=== PATIENT | female | born 1975 | race American Indian/Alaskan Native ===

== ENCOUNTER 2017-10-28 12:15 | Emergency (ER) | payer BC ==
[2017-10-28 13:41] LABS: Basophils # (Auto) 0.1 K/mm3 (0.0-0.1); Basophils % (Auto) 1.3 % (0.0-1.8); Eosinophils # (Auto) 0.1 K/mm3 (0.0-0.4); Eosinophils % (Auto) 2.7 % (0.0-4.3); Hematocrit 36.2 % (30.3-42.9); Hemoglobin 11.7 gm/dl (10.1-14.3); Lymphocytes # (Auto) 1.2 K/mm3 (1.2-5.4); Lymphocytes % (Auto) 29.7 % (13.4-35.0); Mean Corpuscular HGB Conc 32 % (30-34); Mean Corpuscular Hemoglobin 28 pg (28-32); Mean Corpuscular Volume 86 fl (79-97); Monocytes # (Auto) 0.4 K/mm3 (0.0-0.8); Monocytes % (Auto) 8.5 % (0.0-7.3); Platelet Count 251 K/mm3 (140-440); Red Blood Count 4.23 M/mm3 (3.65-5.03); Red Cell Distribution Width 14.2 % (13.2-15.2)
--- NOTE | 2017-10-28 15:25 | Emergency Department Report ---
ED HPI - General Chief complaint: Vaginal Bleeding Stated complaint: PREG AND BLEEDING Time Seen by Provider: 10/28/17 14:49 Source: patient Mode of arrival: Ambulatory Limitations: No Limitations - History of Present Illness Initial comments: This is a 42-year-old female nontoxic, well nourished in appearance, no acute signs of distress presents to the ED with c/o of vaginal bleeding x2 days. Patient stated yesterday she noticed some spotting while in her [employer] and then has heavy vaginal bleeding that started this morning. Patient denies any abdominal or pelvic pain. Patient stated that she was told that her HCG has decreased from 1,000s to 900s. Patient stated that she has an appointment tomorrow with [employer]. Patient denies any vaginal discharge or foul odor. Patient denies any nausea, vomiting, chest pain, shortness of breathe, fever, chills, headache, stiff neck, numbness, tingling. Patient denies any urinary symptoms. Patient stated allergies to Bactrim. MD Complaint: vaginal bleeding -: days(s) (2) Radiation: none Improves with: none Worsens with: none Associated symptoms: vaginal bleeding. denies: nausea/vomiting, vaginal discharge, abdominal pain, dysuria, headache, vision changes, malaise, dysparuenia, rash, seizure, shortness of breath, syncope, weakness Vaginal bleeding: light :: Yes Number of weeks : 5 Pre-didi care: followed by OB - Related Data Allergies Allergy/AdvReac Type Severity Reaction Status Date / Time sulfamethoxazole Allergy Rash Verified 10/28/17 12:56 [From Bactrim] trimethoprim [From Bactrim] Allergy Rash Verified 10/28/17 12:56 ED Review of Systems ROS: Stated complaint: PREG AND BLEEDING Other details as noted in HPI Constitutional: denies: chills, fever Eyes: denies: eye pain, eye discharge, vision change ENT: denies: ear pain, throat pain Respiratory: denies: cough, shortness of breath, wheezing Cardiovascular: denies: chest pain, palpitations Endocrine: no symptoms reported Gastrointestinal: denies: abdominal pain, nausea, vomiting, diarrhea Genitourinary: abnormal menses. denies: urgency, dysuria, discharge Musculoskeletal: denies: back pain, joint swelling, arthralgia Skin: denies: rash, lesions Neurological: denies: headache, weakness, paresthesias Psychiatric: denies: anxiety, depression Hematological/Lymphatic: denies: easy bleeding, easy bruising ED Past Medical Hx - Past Medical History Previous Medical History?: No - Surgical History Past Surgical History?: Yes Additional Surgical History: c section - Social History Smoking Status: Never Smoker Substance Use Type: None ED Physical Exam - General Limitations: No Limitations General appearance: alert, in no apparent distress - Head Head exam: Present: atraumatic, normocephalic - Eye Eye exam: Present: normal appearance Pupils: Present: normal accommodation - ENT ENT exam: Present: normal exam, mucous membranes moist - Neck Neck exam: Present: normal inspection, full ROM - Respiratory Respiratory exam: Present: normal lung sounds bilaterally. Absent: respiratory distress - Cardiovascular Cardiovascular Exam: Present: regular rate, normal rhythm. Absent: systolic murmur, diastolic murmur, rubs, gallop - GI/Abdominal GI/Abdominal exam: Present: soft, normal bowel sounds. Absent: distended, tenderness, guarding, rebound, rigid, diminished bowel sounds - Rectal Rectal exam: Present: deferred - Extremities Exam Extremities exam: Present: normal inspection, full ROM, normal capillary refill - Back Exam Back exam: Present: normal inspection, full ROM - Neurological Exam Neurological exam: Present: alert, oriented X3 - Psychiatric Psychiatric exam: Present: normal affect, normal mood - Skin Skin exam: Present: warm, dry, intact, normal color. Absent: rash ED Course Vital Signs 10/28/17 12:43 Temperature 98.4 F Pulse Rate 78 Respiratory 18 Rate Blood Pressure 109/70 O2 Sat by Pulse 99 Oximetry - Reevaluation(s) Reevaluation #1: 10/28/17 15:32 Patient is speaking in full sentences with no signs of distress noted. ED Medical Decision Making - Lab Data Result diagrams: 10/28/17 13:17 - Medical Decision Making This is a 42-year-old female presents with threatened miscarriage. Patient is stable and was examined by me. Normal abdominal exam. US OB obtained and dictated by the radiologist. Ua obtained. Quantative serum test obtained and has decreased from previous office visit. Patient notified of the US report with no questions noted by the patient. RH factor positive. Labs within normal limits. Patient was referred to Follow-up with a [employer] in 3-5 days or if symptoms worsen and continue return to emergency room as soon as possible. At time of discharge, the patient does not seem toxic or ill in appearance. No acute signs of distress noted. Patient agrees to discharge treatment plan of care. No further questions noted by the patient. Critical care attestation.: If time is entered above; I have spent that time in minutes in the direct care of this critically ill patient, excluding procedure time. ED Disposition Clinical Impression: Threatened miscarriage Disposition: DC- TO HOME OR SELFCARE Is pt being admited?: No Does the pt Need Aspirin: No Condition: Stable Instructions: Threatened Miscarriage (ED) Additional Instructions: Follow-up with a [employer] doctor in 3-5 days or if symptoms worsen and continue return to emergency room as soon as possible. Your HCG level if 917 today. Referrals: PRIMARY CAREMD [Primary Care Provider] - 3-5 Days LAKSHMI COKER MD [Staff Physician] - 3-5 Days [facility] [Provider Group] - 3-5 Days Forms: Work/School Release Form(ED)
--- NOTE | 2017-10-28 17:03 | Ultrasound Report ---
FINAL REPORT PROCEDURE: Transabdominal obstetrical ultrasound. TECHNIQUE: Real-time transabdominal sonography of the uterus, placenta, amniotic fluid, adnexa, and fetus was performed with image documentation. Measurements were obtained to determine age/size. M-mode Doppler was used to document heartbeat. CPT 46064 HISTORY: Vaginal bleeding. COMPARISON: No prior studies are available for comparison. FINDINGS: The uterus measures 11.1 centimeters x 6.7 centimeters x 6.3 centimeters. There is a hypoechoic mass in the posterior portion of the uterus. This measures 2.1 centimeters in maximum dimension. It is consistent with a small leiomyoma. The endometrial echo complex appears normal. There is a small intrauterine gestational sac. This should be better seen with transvaginal imaging. Neither ovary is identified. IMPRESSION: Early intrauterine gestational sac.
--- NOTE | 2017-10-28 17:07 | Ultrasound Report ---
FINAL REPORT PROCEDURE: Transvaginal obstetrical ultrasound. TECHNIQUE: Real-time transvaginal sonography of the uterus, placenta, amniotic fluid, adnexa, and fetus was performed with image documentation. Measurements were obtained to determine age/size. M-mode Doppler was used to document heartbeat. CPT 99134 HISTORY: Vaginal bleeding. COMPARISON: No prior studies are available for comparison. FINDINGS: The uterus measures 11.1 centimeters x 6.7 centimeters x 6.4 centimeters. There is a small mass in the posterior uterus consistent with a fibroid. There is a small fluid collection in the fundal portion of the endometrial canal. This is consistent with a gestational sac. There is no yolk sac or pole identified however. Follow-up imaging is recommended. Correlation with a quantitative beta HCG value should also be helpful. Mean gestational sac diameter is 9.2 millimeters. This indicates a menstrual age of 5 weeks 5 days. The estimated date of confinement is 06/25/2018. Both ovaries appear normal in size. IMPRESSION: Small intrauterine gestational sac with follow-up imaging recommended. Small uterine leiomyoma.
[2017-10-28 18:21] VITALS: BP 130/82
== END 2017-10-28 18:21 | disposition home or self-care (01) ==
LOC: ED 12:15
DX: O20.0 Threatened abortion (principal); Z3A.01 Less than 8 weeks gestation of pregnancy; Z88.2 Allergy status to sulfonamides; Z88.8 Allergy status to other drugs, medicaments and biological substances
CPT/HCPCS: 36415; 76801; 76817; 84702; 85025; 86850; 86900; 86901

== ENCOUNTER 2018-11-11 11:23 | Outpatient (CLI) | payer BC, MEDICAID ==
[2018-11-11] MEDS ORDERED: ADENOSINE 6 MG/2 ML INJ IV ONE (11:33)
[2018-11-11] MEDS ORDERED: SODIUM CHLORIDE 0.9% 1000 ML 1,000 ML IV ONE (11:33)
[2018-11-11] MEDS ORDERED: SODIUM CHLORIDE 0.9% 1000 ML 1,000 ML ONE (11:35)
--- NOTE | 2018-11-11 11:39 | Emergency Department Report ---
HPI - General Time Seen by Provider: 11/11/18 11:30 - HPI HPI: Room 18 The patient is a 43-year-old female presenting with a chief complaint of SVT. The patient has a history of SVTs states after bending over and standing up she felt palpitations consistent with her SVTs. Patient denies shortness of breath or chest pain. Patient denies abdominal pain or vaginal bleeding. The patient states she is "8 months" Location: [See above] Duration: [See above] Quality: [See above] Severity: [See above] Timing: [See above] Context: [See above] Modifying factors: [See above] Associated signs and symptoms: [see above] ED Past Medical Hx - Past Medical History Additional medical history: SVT - Surgical History Additional Surgical History: c section - Family History Family history: no significant - Social History Smoking Status: Never Smoker Substance Use Type: None (denies illicit drug use) - Medications Home Medications: Home Medications Medication Instructions Recorded Confirmed Last Taken Type Ferrous Sulfate [Iron 325 MG] 325 mg PO QDAY 11/11/18 11/11/18 11/11/18 History Metoprolol [Lopressor] 25 mg PO BID 11/11/18 11/11/18 11/11/18 History Vit-Fe Fumar-FA [ 1 tab PO QDAY 11/11/18 11/11/18 11/11/18 History Vitamin] ED Review of Systems ROS: Stated complaint: SVT Other details as noted in HPI Constitutional: no symptoms reported Eyes: denies: eye pain ENT: denies: throat pain Respiratory: denies: shortness of breath Cardiovascular: palpitations. denies: chest pain Endocrine: no symptoms reported Gastrointestinal: denies: abdominal pain Genitourinary: denies: abnormal menses Musculoskeletal: denies: back pain Neurological: denies: headache Physical Exam - Physical Exam Vital Signs: Vital Signs 11/11/18 11/11/18 11/11/18 11:20 11:26 11:30 Pulse Rate 216 H 216 H 90 Respiratory 24 18 18 Rate Blood Pressure 92/68 O2 Sat by Pulse 96 100 Oximetry 11/11/18 11/11/18 11/11/18 11:35 11:40 11:46 Pulse Rate 92 H 94 H 98 H Respiratory 13 13 15 Rate Blood Pressure 91/61 103/71 108/66 O2 Sat by Pulse 100 100 99 Oximetry 10/04/19 10/04/19 10/04/19 11:50 11:55 12:00 Pulse Rate 90 96 H 97 H Respiratory 15 21 24 Rate Blood Pressure 82/49 106/58 106/58 O2 Sat by Pulse 100 100 100 Oximetry 11/11/18 12:05 Pulse Rate 98 H Respiratory 19 Rate Blood Pressure 103/60 O2 Sat by Pulse 100 Oximetry Physical Exam: GENERAL: The patient is well-developed well-nourished female on a stretcher appearing to be slightly anxious HEENT: Normocephalic. Atraumatic. Extraocular motions are intact. Patient has moist mucous membranes. NECK: Supple. Trachea midline CHEST/LUNGS: Clear to auscultation. There is no respiratory distress noted. HEART/CARDIOVASCULAR: Regular. There is tachycardia. There is no gallop rub or murmur. ABDOMEN: Abdomen is gravid SKIN: There is no rash. There is no edema. There is no diaphoresis. NEURO: The patient is awake, alert, and oriented. The patient is cooperative. The patient has normal speech MUSCULOSKELETAL: There is no evidence of acute injury. ED Course - Consultations Consultation #1: 11/11/18 12:[address] Jorgensen- will transfer patient to L&D for [facility] ED Medical Decision Making - Lab Data Result diagrams: 11/11/18 11:38 11/11/18 11:38 Laboratory Tests 11/11/18 11/11/18 11/11/18 11:38 11:38 11:38 WBC 6.7 RBC 3.69 Hgb 11.0 Hct 32.7 MCV 89 MCH 30 MCHC 34 RDW 13.3 Plt Count 206 Lymph % (Auto) 17.8 [place] % (Auto) 6.6 Eos % (Auto) 2.0 Baso % (Auto) 0.4 Lymph # 1.2 [place] # 0.4 Eos # 0.1 Baso # 0.0 Seg Neutrophils % 73.2 H Seg Neutrophils # 4.9 Sodium 138 Potassium 3.4 L Chloride 104.7 Carbon Dioxide 16 L Anion Gap 21 BUN 11 Creatinine 0.6 L Estimated GFR > 60 BUN/Creatinine Ratio 18 Glucose 131 H Calcium 7.6 L CK-MB (CK-2) 1.2 Troponin T < 0.010 Albumin TSH 1.070 Free T4 0.95 11/11/18 Unknown WBC RBC Hgb Hct MCV MCH MCHC RDW Plt Count Lymph % (Auto) [place] % (Auto) Eos % (Auto) Baso % (Auto) Lymph # [place] # Eos # Baso # Seg Neutrophils % Seg Neutrophils # Sodium Potassium Chloride Carbon Dioxide Anion Gap BUN Creatinine Estimated GFR BUN/Creatinine Ratio Glucose Calcium CK-MB (CK-2) Troponin T Albumin 3.3 L TSH Free T4 Corrected calcium 8.48 - EKG Data -: EKG Interpreted by Me EKG shows normal: sinus rhythm Rate: normal (93 bpm) - EKG Data When compared to previous EKG there are: previous EKG unavailable Interpretation: normal EKG (status post adenosine) - Differential Diagnosis SVT Critical care attestation.: If time is entered above; I have spent that time in minutes in the direct care of this critically ill patient, excluding procedure time. ED Disposition Clinical Impression: SVT (supraventricular tachycardia), Hypokalemia Disposition: DC-01 TO HOME OR SELFCARE Is pt being admited?: No Does the pt Need Aspirin: No Condition: Stable Instructions: Supraventricular Tachycardia (ED) Additional Instructions: Return to the emergency department should you develop worsening symptoms, inability to tolerate food or liquids, high fever or any other concerns Time of Disposition: 12:59 (xfer to L&D)
[2018-11-11 11:56] LABS: Basophils % (Auto) 0.4 % (0.0-1.8); Eosinophils # (Auto) 0.1 K/mm3 (0.0-0.4); Hematocrit 32.7 % (30.3-42.9); Lymphocytes # (Auto) 1.2 K/mm3 (1.2-5.4); Lymphocytes % (Auto) 17.8 % (13.4-35.0); Mean Corpuscular HGB Conc 34 % (30-34); Mean Corpuscular Volume 89 fl (79-97); Monocytes # (Auto) 0.4 K/mm3 (0.0-0.8); Monocytes % (Auto) 6.6 % (0.0-7.3); Platelet Count 206 K/mm3 (140-440); Red Blood Count 3.69 M/mm3 (3.65-5.03); Red Cell Distribution Width 13.3 % (13.2-15.2)
[2018-11-11 12:16] LABS: BUN/Creatinine Ratio 18; Blood Urea Nitrogen 11 mg/dL (7-17); Calcium 7.6 mg/dL (8.4-10.2); Hemolysis Index 7
[2018-11-11 12:18] LABS: Creatine Kinase MB 1.2 ng/mL (0.0-4.0)
[2018-11-11 12:29] LABS: Free T4 (Free Thyroxine) 0.95 ng/dL (0.76-1.46)
[2018-11-11] MEDS ORDERED: POTASSIUM CHLORIDE ER 20 MEQ TAB PO ONE (12:31)
[2018-11-11 14:07] VITALS: BP 96/55
--- NOTE | 2018-11-11 15:41 | Event Note ---
Date: 11/11/18 patient transferred to L&D after cardioversion for SVT for observation and monitoring. BPP was ordered however while waiting for the US and while I was in a c/s I received a call from Jessie FLORENTINO stating patient left AMA b/c she had to get her keys from her office.
== END 2018-11-11 15:15 | disposition left against medical advice (07) ==
LOC: ED 11:23 → TRG 11:23 → EDSTATUS 13:26 → LD 13:53 → EDSTATUS 13:53 → TRG 15:15
PROVIDERS: ATTEND Obstetrics & Gynecology
DX: O99.353 Diseases of the nervous system complicating pregnancy, third trimester (principal); I47.1 Supraventricular tachycardia; Z3A.32 32 weeks gestation of pregnancy
CPT/HCPCS: 36415; 80048; 82040; 82550; 82553; 84439; 84443; 84484; 85025; 93005; 93010; J0153; J7030; 99284